=== PATIENT | male | born 1935 | race Two or more races ===

== ENCOUNTER 2021-08-01 09:00 | Outpatient (CLI) | payer OTHER | END 2021-08-01 09:30 | disposition home or self-care (01) | LOC: PPH VACUNA 09:00 | PROVIDERS: ATTEND Emergency Medicine Pediatric Emergency Medicine | DX: Z23 Encounter for immunization (principal) ==

== ENCOUNTER 2022-01-05 10:43 | Emergency (ER) | payer OTHER ==
[~2022-01-05] VITALS: Ht 180.3 cm; Wt 99.8 kg
[2022-01-05] MEDS ORDERED: PLAVIX75 MG PO (11:11)
[2022-01-05] MEDS ORDERED: PERCOCET 5-3251 EACH PO (15:36)
[2022-01-05] MEDS ORDERED: MEDROLPACK PO (15:36)
== END 2022-01-05 16:04 | disposition home or self-care (01) ==
LOC: ER 10:43
DX: M25.511 Pain in right shoulder (principal); Z20.822 Contact with and (suspected) exposure to COVID-19; M25.411 Effusion, right shoulder

== ENCOUNTER 2023-06-27 16:46 | Outpatient (CLI) | payer OTHER ==
[~2023-06-27 16:46] MED LIST: MEDROLPACK PO; PERCOCET 5-3251 EACH PO; PLAVIX75 MG PO
== END 2023-06-27 16:49 | disposition home or self-care (01) ==
LOC: LAB 16:46
PROVIDERS: ATTEND Urology
DX: R97.20 Elevated prostate specific antigen [PSA] (principal)

== ENCOUNTER 2023-07-26 07:19 | Outpatient (CLI) | payer OTHER | END 2023-07-26 12:57 | disposition home or self-care (01) | LOC: SONOGRAMA 07:19 | PROVIDERS: ATTEND Urology | DX: C61 Malignant neoplasm of prostate (principal); D29.1 Benign neoplasm of prostate ==